=== PATIENT | male | born 1990 | race Hispanic/Latino ===

== ENCOUNTER 2022-12-15 23:27 | Emergency (ER) | payer SELFPAY ==
[2022-12-16 00:38] LABS: #Monocytes 0.4 thou/uL (0.11-0.59); #Neutrophils 2.8 thou/uL (1.40-6.50); %Basophils 0.7 % (0.0-1.0); %Eosinophils 0.7 % (0.0-10.0); %Lymphocytes 41.6 % (21.0-51.0); %Monocytes 6.7 % (0.0-10.0); %Neutrophils 49.9 % (42.0-75.0); Hematocrit 41.8 % (42.0-52.0); Hemoglobin 14.8 g/dL (14.0-18.0); Mean Corpuscular HGB CONC 35.4 g/dL (32.0-36.0); Mean Corpuscular Hemoglobin 28.4 pg (27.0-31.0); Mean Corpuscular Volume 80.1 fl (78.0-98.0); Mean Platelet Volume 10.4 fL (7.4-10.4); Platelet Count 306 10x3/uL (130-400); RBC Distribution Width 11.6 % (11.5-14.5); Red Blood Cell (RBC) Count 5.22 mill/uL (4.70-6.10); White Blood Cell (WBC) Count 5.6 10x3/uL (4.8-10.8)
[2022-12-16 00:54] LABS: CRP (Inflammatory) Less than 0.50 mg/dL (= or < 0.5); Lipase 23 U/L (8-78); Magnesium 1.8 mg/dL (1.6-2.6)
[2022-12-16 00:58] LABS: Troponin I Less than 0.010 ng/mL (< 0.028)
[2022-12-16 01:01] LABS: ALT (SGPT) 19 U/L (8-55); AST (SGOT) 16 U/L (5-34); Albumin 3.5 g/dL (3.5-5.0); Alkaline Phosphatase 132 U/L (40-110); Anion Gap 16 mmol/L (10-20); BUN (Urea Nitrogen) 13 mg/dL (8.9-20.6); Bilirubin, Total 0.3 mg/dL (0.2-1.2); CK (CPK) 29 U/L (30-200); Calc. Creatinine Clearance 0 mL/min (70-130); Calcium 9.6 mg/dL (7.8-10.44); Carbon Dioxide 21 mmol/L (22-29); Chloride 97 mmol/L (98-107); Estimated GFR 125; Potassium 4.5 mmol/L (3.5-5.1); Protein, Total 6.5 g/dL (6.0-8.3); Sodium 129 mmol/L (136-145)
[2022-12-16 01:23] LABS: Glucose 555 mg/dL (70-105)
[2022-12-16] MEDS ORDERED: Insulin Regular 300 UNITS/3 ML VIAL ONE (01:37)
[2022-12-16 02:03] LABS: Bacteria/HPF None Seen HPF (None Seen); Bilirubin Negative (Negative); Blood, Urine Negative (Negative); CAUTI Indications for Culture < 2yrs of age; Clarity Clear (Clear); Glucose, Urine (Dipstick) Greater than 1000 mg/dL (Negative); Ketone, Urine 10 mg/dL (Negative); Leukocyte Negative Leu/uL (Negative); Nitrite Negative (Negative); Protein, Urine (Dipstick) 30 mg/dL (Neg-Trace); RBC/HPF 0-3 HPF (0-3); Specific Gravity, Urine 1.041 (1.002-1.036); Squamous Epithelial None Seen HPF (0-3); Urobilinogen Normal mg/dL (Less than 2); WBC/HPF 0-3 HPF (0-3); pH, Urine 6.5 (5.0-9.0)
[2022-12-16 02:10] LABS: Urine Culture Reflex Yes Yes
== END 2022-12-16 02:39 | disposition home or self-care (01) ==
LOC: ERS 23:27
DX: E11.40 Type 2 diabetes mellitus with diabetic neuropathy, unspecified (principal); E11.65 Type 2 diabetes mellitus with hyperglycemia; Z79.84 Long term (current) use of oral hypoglycemic drugs
CPT/HCPCS: 36415; 36416; 71045; 80053; 81001; 82010; 82140; 82550; 83690; 83735; 83880; 83930; 84443; 84484; 85025; 85379; 85652; 86140; 87086; 93005; 96361; 96374; J1815